=== PATIENT | female | born 2000 | race Caucasian/White ===

== ENCOUNTER 2022-03-07 18:32 | Emergency (ER) | payer OTHER ==
[~2022-03-07] VITALS: Ht 162.5 cm; Wt 77.1 kg
[2022-03-07 19:33] LABS: BASO % 0.3 % (0.0-1.0); EOS % 0.8 % (1.0-4.0); HEMATOCRIT 39.5 % (37.0-47.0); LYMPH # 1.7 10*3/uL (1.3-4.4); LYMPH % 45.1 % (27.0-41.0); MEAN CELL VOLUME 87.2 fl (81.0-99.0); MEAN CORPUSCULAR HGB 28.3 pg (27.0-31.0); MEAN CORPUSCULAR HGB CONC 32.4 g/dl (33.0-37.0); MEAN PLATELET VOLUME 11.6 fl (9.6-12.3); MONO # 0.2 10*3/uL (0.1-1.0); MONO % 4.7 % (3.0-9.0); NEUT # 1.9 10*3/uL (2.3-7.9); NEUT % 48.8 % (47.0-73.0); PLATELET COUNT AUTOMATED 204 10*3/uL (130-400); RED BLOOD COUNT 4.53 10*6/uL (4.10-5.10); RED CELL DISTRI WIDTH 13.7 % (0-14.5); WHITE BLOOD COUNT 3.8 10*3/uL (4.8-10.8)
[2022-03-07 19:41] LABS: BILIRUBIN Negative (Negative); BLOOD Negative (Negative); CLARITY Clear (Clear); COLOR Yellow (Yellow); GLUCOSE Negative (Negative); KETONE Negative (Negative); LEUKO ESTERASE Negative (Negative); NITRITE Negative (Negative); UROBILINOGEN 0.2 E.U./dl (0.0-1.0)
[2022-03-07 19:45] LABS: PH 8.5 (4.5-8.0)
[2022-03-07 19:49] LABS: ALKALINE PHOSPHATASE 66 U/L (45-117); BUN 6 mg/dl (7-24); CHLORIDE 106 mmol/L (98-107); CREATININE 0.77 mg/dL (0.55-1.02); POTASSIUM 3.4 mmol/L (3.5-5.1); SGOT/AST 22 IU/L (3-35); SGPT/ALT 19 U/L (12-78); SODIUM 139 mmol/L (136-145)
[2022-03-07 19:52] LABS: BACTERIA 2+
== END 2022-03-08 01:58 | disposition home or self-care (01) ==
LOC: ED 18:32
PROVIDERS: Emergency Medicine
DX: R56.9 Unspecified convulsions (principal); Z88.2 Allergy status to sulfonamides

== ENCOUNTER 2023-01-19 23:14 | Emergency (ER) | payer OTHER ==
[~2023-01-19] VITALS: Ht 162.5 cm; Wt 68.0 kg
[2023-01-20 01:59] LABS: BILIRUBIN Negative (Negative); BLOOD Negative (Negative); CLARITY Clear (Clear); COLOR Yellow (Yellow); GLUCOSE Negative (Negative); KETONE 1+ (Negative); LEUKO ESTERASE Negative (Negative); NITRITE Negative (Negative); PH 7.5 (4.5-8.0); SPECIFIC GRAVITY <= 1.005 (1.001-1.030); UROBILINOGEN 0.2 E.U./dl (0.0-1.0)
[2023-01-20 02:08] LABS: EPITHELIAL CELLS 16-20
[2023-01-20 02:09] LABS: RBC 0-2 rbc/hpf (0-2); WBC 0-2 wbc/hpf (0-5)
[2023-01-20] MEDS ORDERED: WAL-ITIN5 MG/5 ML PO (04:18)
[2023-01-20] MEDS ORDERED: AMOX-CLAV 875-1 EACH PO (04:18)
== END 2023-01-20 04:44 | disposition home or self-care (01) ==
LOC: ED 23:14
PROVIDERS: Emergency Medicine
DX: J32.9 Chronic sinusitis, unspecified (principal); H66.93 Otitis media, unspecified, bilateral; J03.90 Acute tonsillitis, unspecified; Z88.2 Allergy status to sulfonamides; Z20.822 Contact with and (suspected) exposure to COVID-19

== ENCOUNTER 2023-06-21 19:23 | Emergency (ER) | payer OTHER ==
[~2023-06-21] VITALS: Ht 162.5 cm; Wt 59.0 kg
[~2023-06-21 19:23] MED LIST: AMOX-CLAV 875-1 EACH PO; WAL-ITIN5 MG/5 ML PO
[2023-06-21 20:29] LABS: BILIRUBIN Negative (Negative); BLOOD Negative (Negative); CLARITY Clear (Clear); COLOR Dark Yellow (Yellow); GLUCOSE Negative (Negative); KETONE Trace (Negative); LEUKO ESTERASE Trace (Negative); NITRITE Negative (Negative); PH 6.5 (4.5-8.0)
[2023-06-21 20:38] LABS: BACTERIA 1+; EPITHELIAL CELLS 16-20; MUCOUS 1+; RBC 0-2 rbc/hpf (0-2)
[2023-06-21] MEDS ORDERED: METRONIDAZOLE500 M1 PO (22:18)
== END 2023-06-21 21:54 | disposition home or self-care (01) ==
LOC: ED 19:23
PROVIDERS: Internal Medicine
DX: A64 Unspecified sexually transmitted disease (principal); Z88.2 Allergy status to sulfonamides; Z79.2 Long term (current) use of antibiotics; Z79.899 Other long term (current) drug therapy

== ENCOUNTER → 2024-01-24 | Outpatient (CLI) | payer OTHER ==
[~2024-01-24] MED LIST changes: +METRONIDAZOLE500 M1 PO
[2024-01-24 14:45] LABS: BASO % 0.4 % (0.0-1.0); EOS # 0.2 10*3/uL (0.0-0.4); HEMATOCRIT 42.3 % (37.0-47.0); LYMPH # 1.8 10*3/uL (1.3-4.4); LYMPH % 24.2 % (27.0-41.0); MEAN CELL VOLUME 93.2 fl (81.0-99.0); MEAN CORPUSCULAR HGB CONC 32.2 g/dl (33.0-37.0); MEAN PLATELET VOLUME 10.8 fl (9.6-12.3); MONO # 0.5 10*3/uL (0.1-1.0); MONO % 6.4 % (3.0-9.0); NEUT % 66.6 % (47.0-73.0); PLATELET COUNT AUTOMATED 248 10*3/uL (130-400); RED BLOOD COUNT 4.54 10*6/uL (4.10-5.10); RED CELL DISTRI WIDTH 13.3 % (0-14.5); WHITE BLOOD COUNT 7.5 10*3/uL (4.8-10.8)
[2024-01-24 15:13] LABS: ALKALINE PHOSPHATASE 44 U/L (46-116); BUN 7 mg/dl (9-23); CHLORIDE 103 mmol/L (98-107); FREE T4 1.03 ng/dl (0.89-1.76); POTASSIUM 4.1 mmol/L (3.4-5.1); SGPT/ALT 19 U/L (5-49); T3 UPTAKE 30.9 % (22.4-36.7); THYROXINE (T4) TOTAL 5.5 ug/dl (4.5-10.9); TOTAL PROTEIN 6.7 gm/dL (6.0-8.0)
[2024-01-24 15:19] LABS: VITAMIN D, 25-HYDROXY 30.7 ng/mL (30-100)
== END | disposition home or self-care (01) ==
LOC: LAB 14:19
PROVIDERS: ATTEND Social Worker Clinical
DX: Z51.89 Encounter for other specified aftercare (principal); Z79.899 Other long term (current) drug therapy; E55.9 Vitamin D deficiency, unspecified

== ENCOUNTER 2024-02-12 02:01 | Emergency (ER) | payer OTHER ==
[~2024-02-12] VITALS: Ht 160 cm; Wt 75.3 kg
[2024-02-12] MEDS ORDERED: NITROFURANTOIN100 M9 PO (02:15)
[2024-02-12] MEDS ORDERED: LAMOTRIGINE100 MG PO (02:16)
[2024-02-12] MEDS ORDERED: HYOSCYAMINE0.125 M1 PO (02:16)
[2024-02-12] MEDS ORDERED: QUETIAPINE FUMA25 MG PO (02:17)
[2024-02-12] MEDS ORDERED: LORAZEPAM0.5 M1 PO (02:17)
[2024-02-12 02:38] LABS: BILIRUBIN 1+ (Negative); BLOOD 2+ (Negative); CLARITY Cloudy (Clear); COLOR Dark Yellow (Yellow); GLUCOSE Negative (Negative); KETONE Negative (Negative); LEUKO ESTERASE 2+ (Negative); NITRITE Positive (Negative); SPECIFIC GRAVITY 1.015 (1.001-1.030)
[2024-02-12 02:46] LABS: BACTERIA 1+; RBC 21-30 rbc/hpf (0-2); WBC TNTC wbc/hpf (0-5)
[2024-02-12] MEDS ORDERED: Ciprofloxacin Hydrochloride 500 MG TAB PO ONE (02:50)
[2024-02-12] MEDS ORDERED: CIPRO500 MG PO (02:54)
== END 2024-02-12 02:58 | disposition home or self-care (01) ==
LOC: ED 02:01
PROVIDERS: Internal Medicine
DX: N39.0 Urinary tract infection, site not specified (principal); Z88.2 Allergy status to sulfonamides

== ENCOUNTER 2024-09-21 18:52 | Emergency (ER) | payer OTHER ==
[~2024-09-21] VITALS: Ht 162.5 cm; Wt 83.0 kg
[~2024-09-21 18:52] MED LIST changes: +CIPRO500 MG PO; +HYOSCYAMINE0.125 M1 PO; +LAMOTRIGINE100 MG PO; +LORAZEPAM0.5 M1 PO; +NITROFURANTOIN100 M9 PO; +QUETIAPINE FUMA25 MG PO
[2024-09-21] MEDS ORDERED: MG-AL HYDROXIDE/SIMETICONE 30 ML UDC PO STA (19:21)
[2024-09-21] MEDS ORDERED: Lidocaine Hydrochloride 15 ML UDC PO STA (19:21)
[2024-09-21] MEDS ORDERED: Dicyclomine Hydrochloride 20 MG/10 ML OSYR PO STA (19:21)
[2024-09-21 19:42] LABS: BASO # 0.1 10*3/uL (0.0-0.1); BASO % 0.5 % (0.0-1.0); EOS # 0.2 10*3/uL (0.0-0.4); EOS % 1.6 % (1.0-4.0); HEMATOCRIT 39.6 % (37.0-47.0); MEAN CELL VOLUME 91.5 fl (81.0-99.0); MEAN CORPUSCULAR HGB 29.6 pg (27.0-31.0); MEAN CORPUSCULAR HGB CONC 32.3 g/dl (33.0-37.0); MONO # 0.7 10*3/uL (0.1-1.0); MONO % 6.8 % (3.0-9.0); NEUT # 6.2 10*3/uL (2.3-7.9); NEUT % 64.1 % (47.0-73.0); PLATELET COUNT AUTOMATED 294 10*3/uL (130-400); RED BLOOD COUNT 4.33 10*6/uL (4.10-5.10); RED CELL DISTRI WIDTH 13.2 % (0-14.5); WHITE BLOOD COUNT 9.6 10*3/uL (4.8-10.8)
[2024-09-21 20:12] LABS: ALKALINE PHOSPHATASE 57 U/L (46-116); CHLORIDE 107 mmol/L (98-107); LIPASE 37 U/L (12-53); SGPT/ALT 12 U/L (5-49); TOTAL PROTEIN 6.9 gm/dL (6.0-8.0)
[2024-09-21 20:14] LABS: BUN < 5 mg/dl (9-23)
[2024-09-21 20:18] LABS: BILIRUBIN Negative (Negative); BLOOD Negative (Negative); CLARITY Clear (Clear); COLOR Yellow (Yellow); GLUCOSE Negative (Negative); KETONE Negative (Negative); LEUKO ESTERASE Negative (Negative); NITRITE Negative (Negative); UROBILINOGEN 0.2 E.U./dl (0.0-1.0)
[2024-09-21 20:28] LABS: MUCOUS 1+; WBC 0-2 wbc/hpf (0-5)
== END 2024-09-21 21:33 | disposition home or self-care (01) ==
LOC: ED 18:52
PROVIDERS: Physician Assistant Medical
DX: R10.13 Epigastric pain (principal); R10.31 Right lower quadrant pain; F41.9 Anxiety disorder, unspecified; Z88.2 Allergy status to sulfonamides; Z90.49 Acquired absence of other specified parts of digestive tract

== ENCOUNTER 2024-10-21 01:38 | Emergency (ER) | payer OTHER ==
[~2024-10-21] VITALS: Ht 162.5 cm; Wt 85.3 kg
[2024-10-21] MEDS ORDERED: Acetaminophen/Oxycodone 5 MG/325 MG TABLET PO ONE (02:05)
[2024-10-21] MEDS ORDERED: MELOXICAM15 MG PO (04:05)
== END 2024-10-21 04:12 | disposition home or self-care (01) ==
LOC: ED 01:38
DX: R51.9 Headache, unspecified (principal); M54.2 Cervicalgia; M54.50 Low back pain, unspecified; F41.9 Anxiety disorder, unspecified; R10.2 Pelvic and perineal pain; R10.10 Upper abdominal pain, unspecified; Z88.2 Allergy status to sulfonamides; Z90.49 Acquired absence of other specified parts of digestive tract; V89.2XXA Person injured in unspecified motor-vehicle accident, traffic, initial encounter; Y93.89 Activity, other specified; Y92.410 Unspecified street and highway as the place of occurrence of the external cause; Y99.8 Other external cause status

== ENCOUNTER 2025-05-18 21:57 | Emergency (ER) | payer OTHER ==
[~2025-05-18] VITALS: Ht 162.5 cm; Wt 86.2 kg
[~2025-05-18 21:57] MED LIST changes: +MELOXICAM15 MG PO
[2025-05-18 22:24] LABS: BILIRUBIN 1+ (Negative); BLOOD Negative (Negative); CLARITY Clear (Clear); COLOR Orange (Yellow); KETONE Negative (Negative); LEUKO ESTERASE 1+ (Negative); NITRITE Positive (Negative); PH 5.0 (4.5-8.0); SPECIFIC GRAVITY 1.010 (1.001-1.030); UROBILINOGEN 1.0 E.U./dl (0.0-1.0)
[2025-05-18 22:45] LABS: BACTERIA TRACE; EPITHELIAL CELLS 16-20; WBC 21-30 wbc/hpf (0-5)
[2025-05-18] MEDS ORDERED: CIPRO500 MG PO (22:54)
[2025-05-18] MEDS ORDERED: Ciprofloxacin Hydrochloride 500 MG TAB PO ONE (22:55)
== END 2025-05-18 23:06 | disposition home or self-care (01) ==
LOC: ED 21:57
PROVIDERS: Nurse Practitioner Family
DX: N39.0 Urinary tract infection, site not specified (principal); F41.9 Anxiety disorder, unspecified; Z79.899 Other long term (current) drug therapy; Z88.2 Allergy status to sulfonamides